=== PATIENT | female | born 1945 | race Caucasian/White ===

== ENCOUNTER 2019-03-15 10:16 | Outpatient (CLI) | payer MEDICARE, BC ==
[~2019-03-15 10:16] MED LIST: AMIO200T42 PO; ASPI-515 PO; ATOR-2 PO; CLOP75TA52 PO; HYDR-3237 PO; METO25TA35 PO; POTA20TA6 PO; SPIR25TA PO; WARF3TAB PO-COUM
== END 2019-03-15 23:59 | disposition home or self-care (01) ==
LOC: CFH 10:16
PROVIDERS: ATTEND Physician Assistant Medical
DX: I37.1 Nonrheumatic pulmonary valve insufficiency (principal); I10 Essential (primary) hypertension; E78.5 Hyperlipidemia, unspecified
CPT/HCPCS: 93306